=== PATIENT | female | born 1950 | race Caucasian/White ===

== ENCOUNTER 2019-05-25 17:02 | Emergency (ER) | payer MEDICAID, MEDICARE ==
[2019-05-25] MEDS ORDERED: methylPREDNISolone SUCCINATE 125 MG/2 ML VIAL IVP STA (17:26)
[2019-05-25] MEDS ORDERED: IPRATROPIUM/ALBUTEROL 3 ML NEB INH STA (17:26)
--- NOTE | 2019-05-25 17:29 | ED Physician Documentation ---
PD HPI DYSPNEA - Stated complaint Stated Complaint: SOA - Chief complaint Chief Complaint: Resp - History obtained from History obtained from: Patient (68-year-old woman with history of asthma, she is been hospitalized many times but never in ICU, never intubated. She is new to the area and ran out of her meds which include Advair 500/50, albuterol, Singulair and Claritin about a week ago. She is had increasing shortness of breath with mild cough productive of scant white sputum over the last 2 days. There is no associated fever, chest pain, or pedal edema.) Review of Systems Ten Systems: 10 systems reviewed and negative Constitutional: denies: Fever, Chills Ears: denies: Ear pain Nose: denies: Rhinorrhea / runny nose, Congestion Throat: denies: Sore throat Cardiac: denies: Chest pain / pressure, Palpitations Respiratory: reports: Dyspnea, Cough, Wheezing PD PAST MEDICAL HISTORY - Present Medications Home Medications: Ambulatory Orders Medication Instructions Recorded Confirmed Albuterol Sulf [Ventolin Hfa 1 - 2 puffs INH Q4HR PRN #1 inhaler 05/25/19 Inhaler] Albuterol Sulf [Ventolin Hfa 2 puffs INH Q4HR PRN 05/25/19 05/25/19 Inhaler] Fluticasone/Salmeterol [Advair 1 each IH BID #1 blst.w.dev 05/25/19 500-50 Diskus] Fluticasone/Salmeterol [Advair 1 puffs IH BID 05/25/19 05/25/19 500-50 Diskus] Loratadine [Allergy Relief] 10 mg PO DAILY #30 tablet 05/25/19 Loratadine [Claritin] 10 mg PO DAILY PRN 05/25/19 05/25/19 Montelukast [Singulair] 10 mg PO QPM 05/25/19 05/25/19 Montelukast [Singulair] 10 mg PO QPM #30 tablet 05/25/19 predniSONE [Deltasone] 20 mg PO [id number] #21 tab 05/25/19 - Allergies Allergies/Adverse Reactions: Allergies Allergy/AdvReac Type Severity Reaction Status Date / Time amoxicillin Allergy Unknown Verified 05/25/19 17:19 Sulfa (Sulfonamide Allergy Unknown Verified 05/25/19 17:19 Antibiotics) PD ED PE NORMAL - Vitals Vital signs reviewed: Yes - General General: Alert and oriented X 3, Other (She is speaking in short sentences with respiratory distress) - HEENT HEENT: PERRL, EOMI, Pharynx benign - Neck Neck: Supple, no meningeal sign, No bony TTP - Cardiac Cardiac: RRR, No murmur - Respiratory Respiratory: No respiratory distress, Other (Tight and wheezy throughout without focal findings. Long I:E ratio.) - Abdomen Abdomen: Soft, Non tender - Back Back: No CVA TTP, No spinal TTP - Derm Derm: Normal color, Warm and dry - Extremities Extremities: No edema, No calf tenderness / cord - Neuro Neuro: Alert and oriented X 3, Normal speech Results - Vitals Vitals: Vital Signs - 24 hr 05/25/19 05/25/19 05/25/19 17:13 17:30 18:00 Temperature 37 C Heart Rate 106 H 88 84 Respiratory 24 21 13 Rate Blood Pressure 148/95 H 139/90 H 140/85 H O2 Saturation 89 L 92 99 Oxygen O2 Source Room air PD MEDICAL DECISION MAKING - ED course ED course: 68-year-old woman with history of recurrent asthma presents with an exacerbation of same. After divided nebs she was feeling much better and requesting discharge. She was also given steroids. Departure - Departure Disposition: 01 Home, Self Care Clinical Impression: Asthma Qualifiers: Asthma severity: severe Asthma persistence: persistent Asthma complication type: with acute exacerbation Qualified Code(s): J45.51 - Severe persistent asthma with (acute) exacerbation Condition: Good Record reviewed to determine appropriate education?: Yes Instructions: Asthma Dc Prescriptions: Albuterol Sulf [Ventolin Hfa Inhaler] 1 - 2 puffs INH Q4HR PRN #1 inhaler PRN Reason: Shortness Of Air/Wheezing Fluticasone/Salmeterol [Advair 500-50 Diskus] 1 each IH BID #1 blst.w.dev Loratadine [Allergy Relief] 10 mg PO DAILY #30 tablet Montelukast [Singulair] 10 mg PO QPM #30 tablet predniSONE [Deltasone] 20 mg PO [id number] #21 tab Comments: In addition to the usual prescriptions I also put the prescriptions on [facility]. Please try to utilize your health insurance and only utilize the [facility] vouchers if you cannot use the regular prescriptions. Call your doctor to arrange a follow-up appointment, make the next available appointment. In the interim, return anytime if worse or if new symptoms develop.
[2019-05-25] MEDS ORDERED: ALBUTEROL NEB 2.5 MG/3 ML INH STA ×2 (17:52→18:35)
[2019-05-25 20:08] VITALS: BP 136/111
== END 2019-05-25 19:50 | disposition home or self-care (01) ==
LOC: ED 17:02
DX: J45.51 Severe persistent asthma with (acute) exacerbation (principal); T48.6X6A Underdosing of antiasthmatics, initial encounter; Z91.138 Patient's unintentional underdosing of medication regimen for other reason
CPT/HCPCS: 94640; 96374; 99284